=== PATIENT | male | born 1975 | race Hispanic/Latino ===

== ENCOUNTER 2017-07-15 03:48 | Emergency (ER) | payer OTHER ==
[2017-07-15 04:11] VITALS: BP 122/87; PULSE 94; RESP 16; TEMP 97.9; O2SAT 99
--- NOTE | 2017-07-15 04:27 | ED PDOC ---
HPI: Back Chief Complaint (Nursing): Back Pain Chief Complaint (Provider): Back Pain History Per: Patient Additional Complaint(s): 42 yo male, PMH of Asthma, presents to ED for evaluation of back pain x 9 days now. Pt denies any fever or chills. No UTI like symptoms. Pt seen at [facility] last week for the same and reports he was given Flexeril, which he has been taking without relief. Pt ambulated into ED room with steady gait Past Medical History Reviewed: Nursing Documentation, Vital Signs Vital Signs: Last Vital Signs Temp 97.9 F 07/15/17 04:08 Pulse 94 H 07/15/17 04:08 Resp 16 07/15/17 04:08 BP 122/87 07/15/17 04:08 Pulse Ox 99 07/15/17 04:08 - Medical History PMH: Anxiety, Asthma - Surgical History Surgical History: No Surg Hx - Family History Family History: States: No Known Family Hx - Living Arrangements Living Arrangements: With Family - Social History Current smoker - smoking cessation education provided: No Alcohol: Social Drugs: Denies - Immunization History Hx Tetanus Toxoid Vaccination: No Hx Influenza Vaccination: No - Home Medications Home Medications: Ambulatory Orders Medication Instructions Recorded Citalopram 08/30/14 Ibuprofen 08/30/14 Prednisone 40 mg PO DAILY #6 tab 08/30/14 Proair 08/30/14 oxyCODONE/Acetaminophen [Percocet 1 tab PO BID PRN #10 tab 08/30/14 5/325 mg Tab] Ibuprofen [Motrin] 600 mg PO Q6 #20 tab 07/15/17 diaZEpam [Valium] 5 mg PO BID PRN #10 tab 07/15/17 - Allergies Allergies/Adverse Reactions: Allergies Allergy/AdvReac Type Severity Reaction Status Date / Time bee Allergy RASH Uncoded 07/15/17 04:08 cats Allergy RASH Uncoded 07/15/17 04:08 Review of Systems ROS Statement: Except As Marked, All Systems Reviewed And Found Negative Musculoskeletal: Positive for: Back Pain Physical Exam - Reviewed Nursing Documentation Reviewed: Yes Vital Signs Reviewed: Yes - Physical Exam Appears: Positive for: Well, Non-toxic, No Acute Distress Head Exam: Positive for: ATRAUMATIC, NORMAL INSPECTION, NORMOCEPHALIC Skin: Positive for: Normal Color, Warm, DRY Eye Exam: Positive for: EOMI, Normal appearance, PERRL ENT: Positive for: Normal ENT Inspection Neck: Positive for: Normal, Painless ROM Cardiovascular/Chest: Positive for: Regular Rate, Rhythm Respiratory: Positive for: CNT, Normal Breath Sounds Gastrointestinal/Abdominal: Positive for: Normal Exam, Bowel Sounds, Soft Back: Positive for: Normal Inspection. Negative for: L CVA Tenderness, R CVA Tenderness, Vertebral Tenderness, Muscle Spasm Extremity: Positive for: Normal ROM Neurologic/Psych: Positive for: Alert, Oriented - ECG O2 Sat by Pulse Oximetry: 99 Medical Decision Making Medical Decision Making: [place] RX Database Accessed Last received RX for Percocet on 17: 30 tabs Medicated with Toradol IM and Valium PO On re-eval, pt asleep. Easily arrousable Stable for discharge in am Disposition - Clinical Impression Clinical Impression: Back pain - Patient ED Disposition Is Patient to be Admitted: No - Disposition Disposition: Routine/Home Disposition Time: 04:28 Condition: STABLE Prescriptions: diaZEpam [Valium] 5 mg PO BID PRN #10 tab PRN Reason: Pain, Mild (1-3) Ibuprofen [Motrin] 600 mg PO Q6 #20 tab Instructions: Back Pain (ED) Forms: [employer] ([place]ian)
--- NOTE | 2017-07-15 14:27 | RAD ---
PROCEDURE: Radiographs of the Lumbar Spine. HISTORY: back pain COMPARISON: No prior. FINDINGS: BONES: Normal alignment. No listhesis. No fracture. DISC SPACES: Limited multilevel spondylosis appreciate the inferior thoracic and visualized upper lumbar spine segments. Adequate preservation of disc heights seen throughout however. Vertebral body heights are normal as well. No destructive bony lesion appreciated. OTHER FINDINGS: None. IMPRESSION: Limited multilevel thoracolumbar spondylosis without fracture or spondylolisthesis.
== END 2017-07-15 06:09 | disposition home or self-care (01) ==
LOC: H.ER 03:48
DX: M54.9 Dorsalgia, unspecified (principal); F41.9 Anxiety disorder, unspecified; J45.909 Unspecified asthma, uncomplicated
CPT/HCPCS: 72114; 96372; 99282; J1885